=== PATIENT | male | born 1975 | race Hispanic/Latino ===

== ENCOUNTER 2021-05-26 06:21 | Day surgery (SDC) | payer OTHER ==
[~2021-05-26] VITALS: Ht 162.6 cm; Wt 83.5 kg
[~2021-05-26 06:21] MED LIST: NAPROSYN500 MG PO
[2021-05-26 07:55] VITALS: BP 116/69
--- NOTE | 2021-05-27 10:00 | NUR ---
PER PHYSICIAN, PATIENT ADVISED OF FINDINGS AND RECOMMENDATIONS NOTED IN COLONOSCOPY REPORT. PATIENT VERBALIZED UNDERSTANDING OF INFORMATION PROVIDED. VOICED NO CONCERNS AT TIME OF CALL. STATES DOING WELL, TOLERATED PROCEDURE WELL. PATIENT FOLLOW UP WITH PCP FOR CONTINUITY OF CARE.
== END 2021-05-26 08:11 | disposition home or self-care (01) | DRG 395 ==
LOC: ENDO 06:21 → ORM 08:45 → ENDO 08:45
PROVIDERS: ATTEND Surgery
PROC: 0DJD8ZZ Inspection of Lower Intestinal Tract, Via Natural or Artificial Opening Endoscopic (ICD-10-PCS; principal; 2021-05-26)
DX: K64.8 Other hemorrhoids (principal); F17.210 Nicotine dependence, cigarettes, uncomplicated

== ENCOUNTER 2024-05-24 08:51 | Emergency (ER) | payer OTHER ==
[2024-05-24] VITALS (16 sets, daily range): BP systolic 110–140; BP diastolic 66–107
[~2024-05-24] VITALS: Ht 162.6 cm; Wt 82.0 kg
[2024-05-24] MEDS ORDERED: OMEPRAZOLE DR40 MG PO (12:49)
[2024-05-24] MEDS ORDERED: AMOX/K CLAV875 M1 PO (12:49)
== END 2024-05-24 12:55 | disposition home or self-care (01) | DRG 153 ==
LOC: ED 08:51
DX: J32.9 Chronic sinusitis, unspecified (principal); I10 Essential (primary) hypertension; F17.290 Nicotine dependence, other tobacco product, uncomplicated